=== PATIENT | female | born 1995 ===

== ENCOUNTER 2019-12-11 10:09 | Emergency (ER) | payer BC ==
[~2019-12-11] VITALS: Ht 160 cm; Wt 72.6 kg
--- NOTE | 2019-12-11 10:24 | NUR ---
during triage, pt/spouse asked if we are urgent care, explained er only, both stated they only want an urgent care and stated they were sorry, but going to an urgent care. ambulatory. no distress, no abd complaints.
== END 2019-12-11 11:10 | disposition short-term general hospital (02) ==
LOC: FSED 10:13
DX: R52 Pain, unspecified (principal)